=== PATIENT | female | born 1995 | race Caucasian/White ===

== ENCOUNTER → 2022-08-08 15:39 | Outpatient (CLI) | payer OTHER, MEDICAID, SELFPAY ==
[2022-08-08 17:44] LABS: Reticulocyte Count, Percent 1.1 % (1.1-2.6)
[2022-08-08 17:48] LABS: Add Manual Diff / Slide Review NO; Basophils Absolute Auto 0 /uL (0-100); Basophils Percent Auto 0.3 % (0-2); Eosinophils Absolute Auto 100 /uL (0-450); Eosinophils Percent Auto 0.8 % (2-4); Hematocrit 32.5 % (36-46); Hemoglobin 10.4 g/dL (12.0-16.0); Lymphocytes Absolute Auto 1600 /uL (1100-4500); Lymphocytes Percent Auto 12.2 % (25-40); Mean Corpuscular Hemoglobin 24.5 PG (26-34); Mean Corpuscular Volume 76.4 fL (80-100); Monocytes Absolute Auto 800 /uL (0-900); Monocytes Percent Auto 6.3 % (3-14); Neutrophils Absolute Auto 10600 /uL (1500-7000); Neutrophils Percent Auto 80.4 % (50-75); Platelet Count 486 X10^3/uL (150-400); Red Blood Cell Count 4.25 X10^6/uL (4.0-5.2); Red Cell Distribution Width 16.5 % (11.6-14.8); White Blood Cell Count 13.2 X10^3/uL (4.5-11.0)
[2022-08-08 17:49] LABS: Hemoglobin A1C% w Est Avg Glu 5.4 % (4.0-6.0)
[2022-08-08 18:13] LABS: HEMOLYSIS < 15 (0-50); Iron 13 ug/dL (37-170)
[2022-08-08 18:15] LABS: Alanine Aminotransferase 16 IU/L (<35); Albumin 4.5 g/dL (3.5-5.0); Albumin Globulin Ratio 1.6 (1.0-2.8); Alkaline Phosphatase 78 U/L (38-126); Aspartate Aminotransferase 20 IU/L (14-36); BUN Creatinine Ratio 26.6 (6-22); Bilirubin Total 0.2 mg/dL (0.2-1.3); Blood Urea Nitrogen 17 mg/dL (7-17); C-Reactive Protein Quant < 0.5 mg/dL (<1.0); Calcium 9.1 mg/dL (8.4-10.2); Carbon Dioxide 24 mmol/L (22-32); Chloride 104 mmol/L (98-107); Cholesterol 132 mg/dL (140-199); Estimated Glomerular Filt Rate > 60 mL/min (>60); Globulin 2.9 g/dL (1.7-4.1); Glucose 84 mg/dL (70-100); HDL Cholesterol 61 mg/dL (40-60); HEMOLYSIS < 15 (0-50); LDL Cholesterol Calculated 62 mg/dL (<100); Potassium 4.1 mmol/L (3.4-5.1); Sodium 138 mmol/L (137-145); Total Protein 7.4 g/dL (6.3-8.2); Triglycerides 45 mg/dL (35-150)
[2022-08-08 18:24] LABS: Follicle Stimulating Hormone 2.44 mIU/mL; LDL Cholesterol Direct 60 mg/dL (<100); Luteinizing Hormone 1.02 mIU/mL
[2022-08-08 18:33] LABS: Free T3, Triiodothyronine Free 4.09 pg/mL (2.77-5.27); Free T4, Direct Thyroxine 0.95 ng/dL (0.78-2.19)
[2022-08-08 18:34] LABS: Percent Iron Saturation 2 % (15-50); Total Iron Binding Capacity 525 ug/dL (265-497); Transferrin 362 mg/dL (206-381)
[2022-08-08 18:45] LABS: Thyroid Stimulating Hormone 1.03 uIU/mL (0.47-4.68)
[2022-08-08 18:46] LABS: Ferritin 4 ng/mL (6-137)
[2022-08-08 19:18] LABS: Folate 7.6 ng/mL (2.76-20.0); Vitamin B12 424 pg/mL (239-931)
[2022-08-08 19:33] LABS: Rheumatoid Factor < 8.6 IU/mL (<12.0)
[2022-08-08 20:32] LABS: Erythrocyte Sedimentation Rate 7 MM/HR (0-20)
[2022-08-14 16:00] LABS: ANA Screen, IFA Positive (.)
== END ==
PROVIDERS: PCP Pediatrics; Referring Provider Family Medicine; Visit Provider Family Medicine
DX: Z00.00 Encounter for general adult medical examination without abnormal findings (principal); E28.2 Polycystic ovarian syndrome; Z82.61 Family history of arthritis; L40.9 Psoriasis, unspecified; B35.1 Tinea unguium; L68.0 Hirsutism; D50.9 Iron deficiency anemia, unspecified; N92.0 Excessive and frequent menstruation with regular cycle
CPT/HCPCS: 36415; 80053; 80061; 82607; 82728; 82746; 83001; 83002; 83036; 83540; 83550; 83721; 84439; 84443; 84481; 85025; 85045; 85651; 86038; 86140; 86430